=== PATIENT | male | born 1990 | race Two or more races ===

== ENCOUNTER 2020-04-29 20:05 | Emergency (ER) | payer OTHER ==
[~2020-04-29] VITALS: Ht 182.9 cm; Wt 77.1 kg
--- NOTE | 2020-04-29 20:16 | NUR ---
[employer] at bedside.
--- NOTE | 2020-04-29 20:19 | NUR ---
ERMD at bedside for MSE.
[2020-04-29] MEDS ORDERED: IV NORMAL SALINE 1000 ML BAG IV ONE (20:30)
--- NOTE | 2020-04-29 20:30 | NUR ---
Patient BIB [facility] for overdose on heroin. Patient was found laying [place] to train tracks, a civilian called EMS. Patient was given 4mg of narcan with success. Patient was revived A/Ox4. Speech is clear, speaks in complete sentences. No acute neuro deficits at this time. Respiratory even and unlabored, no cough no sob. Patient denies any cp, or chest discomfort. No n/v/d. Patient in bed at lowest position, sr upx2, call light within reach. Fall and safety precautions implemented per protocol.
[2020-04-29] MEDS ORDERED: NALOXONE HCL 0.4 MG/ML AMPUL ONE (20:40)
[2020-04-29] MEDS ORDERED: NALOXONE HCL 8 MG in IV NORMAL SALINE 230 ML IV STA (20:44)
[2020-04-29] MEDS ORDERED: NALOXONE HCL 0.4 MG/ML AMPUL IV ONE (20:45)
[2020-04-29 21:26] LABS: BASOPHILS % (AUTO) 0.4 % (0.0-2.0); EOSINOPHILS # (AUTO) 0.1 K/uL (0.0-0.7); EOSINOPHILS % (AUTO) 0.6 % (0.0-7.0); HEMATOCRIT 46.7 % (36.7-47.1); HEMOGLOBIN 15.5 g/dL (12.5-16.3); LYMPHOCYTES # (AUTO) 1.4 K/uL (20.0-40.0); LYMPHOCYTES % (AUTO) 15.4 % (20.5-51.5); MEAN CORPUSCULAR HEMOGLOBIN 29.2 uug (23.8-33.4); MEAN CORPUSCULAR HGB CONC 33 g/dL (32.5-36.3); MEAN CORPUSCULAR VOLUME 88.3 fL (73.0-96.2); MONOCYTES # (AUTO) 0.4 K/uL (2.0-10.0); MONOCYTES % (AUTO) 4.4 % (0.0-11.0); NEUTROPHILS # (AUTO) 7.2 K/uL (1.8-8.9); NEUTROPHILS % (AUTO) 79.2 % (38.5-71.5); PLATELET COUNT (AUTO) 281 K/uL (152-348); RED BLOOD CELL COUNT(AUTO) 5.29 MIL/uL (4.06-5.63); WHITE BLOOD COUNT (AUTO) 9.1 K/uL (3.6-10.2)
[2020-04-29 21:31] LABS: CARBON DIOXIDE 27 mmol/L (21-32); CHLORIDE 106 mmol/L (98-107); CREATININE 1.2 mg/dL (0.6-1.3); GLUCOSE 128 mg/dL (74-106); POTASSIUM 3.8 mmol/L (3.5-5.1); UREA NITROGEN, BLOOD 5 mg/dL (7-18)
--- NOTE | 2020-04-29 21:34 | NUR ---
Patient dosing off intermittently, but easily arousable. A/Ox3 with periods of confusion. Will continue to observe and monitor.
[2020-04-29 21:37] LABS: ETHANOL 126 MG/DL (0-0)
[2020-04-29 21:48] LABS: ALANINE AMINOTRANSFERASE 39 U/L (16-63); ALKALINE PHOSPHATASE 66 U/L (50-136); ASPARTATE AMINOTRANSFERASE 31 U/L (15-37); BILIRUBIN,DIRECT 0.1 mg/dL (0.0-0.2); BILIRUBIN,TOTAL 0.3 mg/dL (0.2-1.0); TOTAL PROTEIN, SERUM 7.7 g/dL (6.4-8.2)
[2020-04-29 21:49] LABS: ACETAMINOPHEN < 2.0 ug/mL (10-30)
[2020-04-29] MEDS ORDERED: IV NS 1000 ML 1,000 ML IV PRN (22:09)
[2020-04-29] MEDS ORDERED: ONDANSETRON 4 MG/2 ML VIAL IV PRN (22:15)
[2020-04-29] MEDS ORDERED: MAGNESIUM HYDROXIDE 30 ML LIQUID UDC PO PRN (22:15)
[2020-04-29] MEDS ORDERED: ENOXAPARIN SODIUM 40 MG/0.4 ML DISP.SYRIN SQ SCH (22:15)
[2020-04-29] MEDS ORDERED: ACETAMINOPHEN 325 MG TABLET PO PRN (22:15)
[2020-04-29] MEDS ORDERED: Z GUARD REMEDY PASTE 57 GM TUBE TOP PRN (22:15)
--- NOTE | 2020-04-29 23:35 | NUR ---
Report given to ANNA Del Real
--- NOTE | 2020-04-30 00:02 | NUR ---
Patient asleep in bed at lowest position, sr upx2, call light within reach. Fall precautions implemented per protocol. VSS, NAD. Still pending COVID results.
--- NOTE | 2020-04-30 03:00 | NUR ---
Patient pulled out IV access, ERMD inserted I.O. on RLE, flushing well.
[2020-04-30] MEDS ORDERED: LIDOCAINE 1%-EPI 1:100,000 20 ML VIAL ONE (03:10)
[2020-04-30] MEDS ORDERED: LIDOCAINE 1%-EPI 1:100,000 20 ML VIAL TP ONE (03:15)
[2020-04-30 06:37] LABS: BASOPHILS # (AUTO) 0.1 K/uL (0.0-8.0); BASOPHILS % (AUTO) 0.8 % (0.0-2.0); EOSINOPHILS % (AUTO) 0.3 % (0.0-7.0); HEMATOCRIT 46.8 % (36.7-47.1); HEMOGLOBIN 15.3 g/dL (12.5-16.3); LYMPHOCYTES # (AUTO) 1.8 K/uL (20.0-40.0); LYMPHOCYTES % (AUTO) 11.6 % (20.5-51.5); MEAN CORPUSCULAR HGB CONC 33 g/dL (32.5-36.3); MEAN CORPUSCULAR VOLUME 88.5 fL (73.0-96.2); MONOCYTES # (AUTO) 0.9 K/uL (2.0-10.0); MONOCYTES % (AUTO) 5.8 % (0.0-11.0); NEUTROPHILS # (AUTO) 12.4 K/uL (1.8-8.9); NEUTROPHILS % (AUTO) 81.5 % (38.5-71.5); PLATELET COUNT (AUTO) 278 K/uL (152-348); RED BLOOD CELL COUNT(AUTO) 5.29 MIL/uL (4.06-5.63); WHITE BLOOD COUNT (AUTO) 15.2 K/uL (3.6-10.2)
--- NOTE | 2020-04-30 06:54 | NUR ---
Report givenn to ANNA Rizzo
[2020-04-30 07:05] LABS: THYROID STIMULATING HORMONE 0.668 mIU/mL (0.358-3.740)
[2020-04-30 07:11] LABS: CREATININE 1.1 mg/dL (0.6-1.3); MAGNESIUM 2.1 mg/dL (1.8-2.4); PHOSPHOROUS 3.8 mg/dL (2.5-4.9); POTASSIUM 4.9 mmol/L (3.5-5.1)
--- NOTE | 2020-04-30 08:02 | NUR ---
PT IS FULLY AWAKE. CAN MOVE WITH ALL 4 EXTREMITIES WITHOUT LIMITATIONS. PT WENT TO RESTROOM TO [place]. GAIT IS STABLE, NO S/S OF ACUTE DISTRESS. CONTINUE TO MONITOR THE PT.
--- NOTE | 2020-04-30 08:16 | NUR ---
PT STATED THAT HE WANTS TO GO HOME, PT DENIES ANY SUICIDAL IDIATION OR ATTEMPTS. PT WENT TO RESTROOM TO SHAVE AND BRUSH HIS TEETH.
--- NOTE | 2020-04-30 08:41 | NUR ---
PT TALKED TO DR VILLA ABOUT LEAVING HOSPITAL ER AMA. DR VILLA EXPLAINED ALL RISKS OF LEAVING HOSPITAL AMA TO THE PT. PT IS RESTING IN BED COMFORTABLY. NO S/S OF DISTRESS AT THIS TIME.
[2020-04-30] MEDS ORDERED: ONDANSETRON 4 MG/2 ML VIAL ONE (08:58)
[2020-04-30] MEDS ORDERED: ONDANSETRON 4 MG/2 ML VIAL IV ONE (09:00)
--- NOTE | 2020-04-30 09:27 | NUR ---
PT REFUSED TO BE ADMITTED TO THE HOSPITAL. PT DECIDED TO LEAVE HOSPITAL ER AMA. DR VILLA TALKED TO THE PT AND EXPLAINED ALL RISKS OF LEAVING HOSPITAL ER AMA TO THE PT. PT VERBALIZED FULL UNDERSTANDING OF HER EXPLANATIONS. PT SIGNED AMA FORM AND LEFT [facility] BY [facility]. GAIT WAS STABLE. NO S/S OF DISTRESS WAS NOTED AT THE TIME OF DISCHARGE. NO SOB, NO N/V, PT DENIED PAIN, NO DIZZINESS.
[2020-04-30 09:45] VITALS: BP 134/71
== END 2020-04-30 09:46 | disposition left against medical advice (07) ==
LOC: ER 20:05
DX: T40.1X1A Poisoning by heroin, accidental (unintentional), initial encounter (principal); T51.0X1A Toxic effect of ethanol, accidental (unintentional), initial encounter; G92 Toxic encephalopathy; F11.20 Opioid dependence, uncomplicated; Y92.85 Railroad track as the place of occurrence of the external cause; R53.83 Other fatigue; F10.10 Alcohol abuse, uncomplicated; Y90.6 Blood alcohol level of 120-199 mg/100 ml; R00.0 Tachycardia, unspecified; Z59.0 Homelessness
CPT/HCPCS: 36415 ×2; 71045; 80048 ×2; 80061; 80076; 80307; 80329; 82962; 83036; 83735; 84100; 84443; 84484; 85025 ×2; 87426; 93005; 96361; 96374; 96375; 99291; G0480; J2310; J2405; J3490; 70030-TC; A4663; J7030; J7050